=== PATIENT | male | born 1970 | race African-American/Black ===

== ENCOUNTER 2017-02-14 21:26 | Emergency (ER) | payer SELFPAY ==
[~2017-02-14] VITALS: Ht 188 cm; Wt 88.5 kg
[2017-02-14] MEDS ORDERED: LORAZEPAM 1 MG TABLET PO ONE (21:30)
[2017-02-14] MEDS ORDERED: OLANZAPINE 5 MG TABLET PO ONE (21:30)
--- NOTE | 2017-02-14 21:30 | NUR ---
PT BIBRA FROM THE STREETS TO ER BED 16. PT IS C/O "TOO MUCH METH USE." UNBABLE TO SLEEP. PT IS HUNGRY AND IS ASKING FOR FOOD. ON MONITOR. STABLE VITALS. NAD NOTED. AWAITING MD OLEA.
--- NOTE | 2017-02-14 21:31 | NUR ---
DR BANERJEE AT BEDSIDE FOR EVAL.
[2017-02-14] MEDS ORDERED: LORAZEPAM 1 MG TABLET ONE (21:44)
[2017-02-14] MEDS ORDERED: OLANZAPINE 5 MG TABLET ONE (21:45)
--- NOTE | 2017-02-14 23:30 | NUR ---
PT SLEEPING IN BED. ON MONITOR W/ STABLE VITALS. WILL CONTINUE TO MONITOR.
--- NOTE | 2017-02-15 00:37 | NUR ---
REPORT TO CHARGE NURSE DOMENIC FOR [facility].
--- NOTE | 2017-02-15 02:00 | NUR ---
PT SLEEPING COMFORTABLY. AWAKENS TO NAME THEN RETURNS TO SLEEP. VSS, NAD NOTED. WILL CONT TO MONITOR.
--- NOTE | 2017-02-15 03:45 | NUR ---
Patient given written and verbal discharge instructions. Patient verbalizes understanding of instructions. Patient is ambulatory with steady gait. Refuses offer of [facility]pc placement. Patient given list of available shelters in surrounding area.
[2017-02-15 03:48] VITALS: BP 140/58
== END 2017-02-15 03:49 | disposition home or self-care (01) ==
LOC: ER 21:28
DX: F15.10 Other stimulant abuse, uncomplicated (principal)
CPT/HCPCS: 99283; A4606; Z7610

== ENCOUNTER 2020-10-27 21:54 | Emergency (ER) | payer MEDICAID ==
[~2020-10-27] VITALS: Ht 188 cm; Wt 93.0 kg
[2020-10-27 21:54] VITALS: BP 156/90
== END 2020-10-27 22:45 | disposition home or self-care (01) ==
LOC: ER 22:43
DX: S01.511D Laceration without foreign body of lip, subsequent encounter (principal); Y08.89XD Assault by other specified means, subsequent encounter

== ENCOUNTER 2021-07-21 09:25 | Emergency (ER) | payer MEDICAID ==
[~2021-07-21] VITALS: Ht 188 cm; Wt 90.7 kg
--- NOTE | 2021-07-21 09:39 | NUR ---
TO ER BED 11, BIB SELF C/O LOWER ABDOMINAL PAIN WHILE URINATING X 2 DAYS, AAOX3, BREATHING EVEN AND NON LABORED, AWAITING MD OLEA
--- NOTE | 2021-07-21 09:45 | NUR ---
URINE SPECIMEN COLLECTED AND SENT TO LAB.
[2021-07-21 10:13] LABS: BILIRUBIN,URINE NEGATIVE (NEGATIVE); COLOR,URINE YELLOW (YELLOW); LEUKOCYTE ESTERASE ,URINE LARGE (NEGATIVE); NITRITE, URINE NEGATIVE (NEGATIVE); PROTEIN,URINE NEGATIVE (NEGATIVE); UGLUCOSE NEGATIVE (NEGATIVE); UROBILINOGEN,URINE 0.2 EU/dL (0.2)
[2021-07-21 10:38] LABS: WBC,URINE 51-80 /HPF (0-3)
[2021-07-21 10:39] LABS: BACTERIA,URINE Few /HPF (None Seen); SQUAMOUS EPITHELIAL CELL,UR 0-2 /HPF (None Seen)
[2021-07-21] MEDS ORDERED: CEPH500C2 PO (12:03)
[2021-07-21] MEDS ORDERED: IBUP-1955 PO (12:03)
[2021-07-21] MEDS: KETOROLAC TROMETHAMINE INJ 30 MG/ML VIAL IM ONE ×2 (12:13→12:28)
[2021-07-21 12:29] VITALS: BP 124/88
--- NOTE | 2021-07-21 12:29 | NUR ---
Patient discharged to home in stable condition. Written and verbal after care instructions given. Patient verbalizes understanding of instruction.
== END 2021-07-21 12:29 | disposition home or self-care (01) ==
LOC: ER 09:26
DX: N39.0 Urinary tract infection, site not specified (principal); N43.3 Hydrocele, unspecified; Z60.2 Problems related to living alone
CPT/HCPCS: 76870-TC; 81001; 87086-TC; 87186-TC

== ENCOUNTER 2022-04-11 01:41 | Emergency (ER) | payer MEDICAID, OTHER ==
[~2022-04-11] VITALS: Ht 188 cm; Wt 90.7 kg
[~2022-04-11 01:41] MED LIST: CEPH500C2 PO; IBUP-1955 PO
[2022-04-11 04:18] VITALS: BP 135/77
[2022-04-11] MEDS ORDERED: IBUPROFEN 400 MG TABLET ONE (04:29)
[2022-04-11] MEDS ORDERED: IBUPROFEN 400 MG TABLET PO ONE (04:30)
--- NOTE | 2022-04-11 05:11 | NUR ---
Patient discharged to home in stable condition. Written and verbal after care instructions given. Patient verbalizes understanding of instruction. Pt ambulatory with a steady gait
== END 2022-04-11 05:12 | disposition home or self-care (01) ==
LOC: ER 01:47
DX: H92.01 Otalgia, right ear (principal); Z60.2 Problems related to living alone; Z79.899 Other long term (current) drug therapy

== ENCOUNTER 2023-01-05 06:33 | Emergency (ER) | payer OTHER ==
[~2023-01-05] VITALS: Ht 182.9 cm; Wt 99.8 kg
[2023-01-05 07:21] LABS: BASOPHILS # (AUTO) 0.1 K/uL (0.0-0.2); BASOPHILS % (AUTO) 0.6 % (0.0-2.0); EOSINOPHILS # (AUTO) 0.1 K/uL (0.0-0.7); EOSINOPHILS % (AUTO) 1.1 % (0.0-6.0); HEMATOCRIT 39 % (39-51); HEMOGLOBIN 12.8 g/dL (13.5-17.5); LYMPHOCYTES # (AUTO) 1.4 K/uL (0.8-4.8); MEAN CORPUSCULAR HEMOGLOBIN 27 PG (26.0-33.0); MEAN CORPUSCULAR HGB CONC 33 g/dl (31.0-36.0); MEAN CORPUSCULAR VOLUME 84 fL (80-96); MONOCYTES % (AUTO) 10.2 % (2.0-12.0); NEUTROPHILS # (AUTO) 7.4 K/uL (1.8-8.9); NEUTROPHILS % (AUTO) 74.1 % (43.0-81.0); PLATELET COUNT (AUTO) 340 K/uL (150-450); RED BLOOD CELL COUNT(AUTO) 4.67 MIL/uL (4.5-6.0)
[2023-01-05 07:22] LABS: APPEARANCE,URINE CLEAR (CLEAR); BILIRUBIN,URINE 1+ (NEGATIVE); BLOOD, URINE NEGATIVE Ery/uL (NEGATIVE); COLOR,URINE YELLOW (YELLOW); KETONES,URINE TRACE mg/dL (NEGATIVE); LEUKOCYTE ESTERASE ,URINE NEGATIVE (NEGATIVE); NITRITE, URINE NEGATIVE (NEGATIVE); PH,URINE 5.5 (5.0-8.0); PROTEIN,URINE TRACE mg/dl (NEGATIVE); UGLUCOSE NEGATIVE (NEGATIVE); UROBILINOGEN,URINE 0.2 EU/dL (0.2)
[2023-01-05 07:39] LABS: RBC,URINE NONE SEEN /HPF (0-2); WBC,URINE 0-2 /HPF (0-3)
[2023-01-05 07:40] LABS: ADD URINE CULTURE NO; BACTERIA,URINE Few /HPF (None Seen); SQUAMOUS EPITHELIAL CELL,UR Few /HPF (None Seen)
[2023-01-05 07:45] LABS: BARBITURATE, URINE NEGATIVE (NEGATIVE); BENZODIAZEPINE, URINE NEGATIVE (NEGATIVE); CANNABINOID, URINE NEGATIVE (NEGATIVE); COCCAINE, URINE NEGATIVE (NEGATIVE); OPIATE, URINE NEGATIVE (NEGATIVE); PHENCYCLIDINE SCREEN,URINE NEGATIVE (NEGATIVE)
[2023-01-05 07:49] LABS: AMPHETAMINE, URINE POSITIVE (NEGATIVE)
[2023-01-05 07:53] LABS: CALCIUM, SERUM 9.2 mg/dL (8.5-10.1); CARBON DIOXIDE 28 mmol/L (21-32); CHLORIDE 101 mmol/L (98-107); CREATININE 1.4 mg/dL (0.6-1.3); GLUCOSE 102 mg/dL (74-106); SODIUM SERUM 139 mmol/L (136-145); UREA NITROGEN, BLOOD 12 mg/dL (7-18)
[2023-01-05 08:00] LABS: ALANINE AMINOTRANSFERASE 45 U/L (12-78); ALBUMIN 3.8 g/dL (3.4-5.0); ALKALINE PHOSPHATASE 91 U/L (46-116); ASPARTATE AMINOTRANSFERASE 46 U/L (15-37); BILIRUBIN,DIRECT 0.2 mg/dL (0.0-0.2); BILIRUBIN,TOTAL 0.6 mg/dL (0.2-1.0); SALICYLATE 3.3 mg/dL (2.8-20.0)
[2023-01-05 08:01] LABS: ACETAMINOPHEN 0 ug/ml (10-30); ALCOHOL, BLOOD < 3 mg/dL (0-10)
[2023-01-05 14:06] VITALS: BP 142/78; TEMP 98; O2SAT 100
== END 2023-01-05 13:20 ==
LOC: ER 06:33
DX: R45.851 Suicidal ideations (principal); Z79.899 Other long term (current) drug therapy; Z20.822 Contact with and (suspected) exposure to COVID-19; Z60.2 Problems related to living alone
CPT/HCPCS: 99285; 85025; 80048; 80076; 81001; 36415; 87426; 80143; 80320; 80307; C9803; G0480